=== PATIENT | female | born 1955 | race Caucasian/White ===

== ENCOUNTER 2018-01-08 16:24 | Emergency (ER) | payer OTHER, MEDICAID ==
[~2018-01-08] VITALS: Ht 160 cm; Wt 88.0 kg
[2018-01-08] MEDS ORDERED: HYDROCHLOROTH12.5 M1 PO ×2 (16:35→16:46)
[2018-01-08] MEDS ORDERED: AMITRIPTYLINE H25 M4 PO (16:35)
[2018-01-08] MEDS ORDERED: SINGULAIR4 M1 PO (16:43)
[2018-01-08] MEDS ORDERED: FLONASE 0.05%50 MCG NASAL (16:43)
[2018-01-08] MEDS ORDERED: VITAMIN C100 MG PO (16:44)
[2018-01-08] MEDS ORDERED: EFFEXOR XR75 MG PO (16:45)
[2018-01-08] MEDS ORDERED: MULTI FOR HER1 EAC2 PO (16:45)
[2018-01-08] MEDS ORDERED: TOPAMAX50 MG PO (16:46)
[2018-01-08] MEDS ORDERED: VISTARIL 25 MG25 M1 PO (16:46)
[2018-01-08] MEDS ORDERED: MYSOLINE50 MG PO (16:46)
[2018-01-08 16:50] LABS: ABSOLUTE BASOPHILS 0.1 thou/uL (0.0-0.2); ABSOLUTE EOSINOPHILS 0.3 thou/uL (0.0-0.7); ABSOLUTE LYMPHOCYTES 2.8 thou/uL (0.8-5.3); ABSOLUTE MONOCYTES 0.6 thou/uL (0.0-1.2); ABSOLUTE NEUTROPHILS 9.7 thou/uL (1.6-8.1); BASOPHILS 0.6 %; EOSINOPHILS 2.1 %; HEMATOCRIT 49.3 % (37.0-47.0); HEMOGLOBIN 16.9 gm/dL (12.0-15.0); LYMPHOCYTES 20.6 %; MCHC 34.2 g/dL (28.0-37.0); MCV 90.6 fL (80.0-100.0); MONOCYTES 4.7 %; MPV 9.1 fl. (7.2-11.1); NUCLEATED RBCS 0 /100WBC; PLATELET COUNT* 309 thou/uL (150-400); RBC 5.44 mil/uL (4.20-5.00); RDW-CV 14.9 % (10.5-14.5); WBC 13.5 thou/uL (4.0-11.0)
[2018-01-08] MEDS ORDERED: PRIMIDONE50 MG PO (16:54)
[2018-01-08] MEDS ORDERED: NEURONTIN 300300 M1 PO (16:55)
[2018-01-08 17:03] LABS: ANION GAP 7 mmol/L (7-16); BUN 15 mg/dL (7-18); CALCIUM 8.6 mg/dL (8.5-10.1); CHLORIDE 101 mmol/L (98-107); CO2 30 mmol/L (21-32); GLUCOSE 117 mg/dL (70-99); POTASSIUM 3.1 mmol/L (3.5-5.1); SODIUM 138 mmol/L (136-145)
[2018-01-08 17:14] LABS: ALBUMIN 3.4 g/dL (3.4-5.0); ALKALINE PHOSPHATASE 103 U/L (46-116); LIPASE 113 U/L (73-393); NT-PRO BRAIN NAT PEPTIDE 21 pg/mL (<300); SGOT 19 U/L (15-37); SGPT 27 U/L (30-65); TOTAL BILIRUBIN 0.1 mg/dL (<0.1-1.0); TOTAL PROTEIN 7.9 g/dL (6.4-8.2); TROPONIN-I LEVEL <0.06 ng/mL (<0.06)
[2018-01-08] MEDS ORDERED: HYDROCODON-ACE1 EAC7 PO (17:28)
[2018-01-08 17:36] VITALS: BP 140/70
--- NOTE | 2018-01-09 17:17 | EKG ---
[place] [address] ELECTROCARDIOGRAM REPORT Name: KATERIN MACKKIE Room: [facility]#: [id number] Admission: 01/08/18 Attend Phys: Discharge: 01/08/18 Date of : 55 Report #: [id number] THIS REPORT FOR: //name// [facility] ED Test Date: 2018-01-08 Test Time: 16:47:50 Pat Name: FELY MACK Department: Room: Gender: F Staff Therapist: NAHUN : 1955 Requested By: Salazar Pepe Order Number: [id number] MD: Ronnie Whyte Measurements Intervals [place] Rate: 76 P: 71 DC: 158 QRS: 43 QRSD: 101 T: 56 QT: 399 QTc: 449 Interpretive Statements Sinus rhythm RSR' in V1 or V2, right VCD or RVH No previous ECG available for comparison Electronically Signed On 01-09-2018 17:17:29 CDT by Ronnie Whyte [email or web address] <ELECTRONICALLY SIGNED> By: Ronnie Whyte MD, [facility] 01/09/18 1717 [id number] 46 Ronnie Whyte MD, FACC /EPI
== END 2018-01-08 17:37 | disposition home or self-care (01) ==
LOC: M.ERS 16:24
PROVIDERS: Emergency Medicine
DX: G62.9 Polyneuropathy, unspecified (principal); M32.9 Systemic lupus erythematosus, unspecified; M25.511 Pain in right shoulder; I10 Essential (primary) hypertension; J44.9 Chronic obstructive pulmonary disease, unspecified; F41.9 Anxiety disorder, unspecified; F32.9 Major depressive disorder, single episode, unspecified; F17.210 Nicotine dependence, cigarettes, uncomplicated

== ENCOUNTER 2018-02-25 11:53 | Inpatient (IN) | payer OTHER, MEDICAID ==
[~2018-02-25] VITALS: Ht 160 cm; Wt 90.7 kg
[~2018-02-25 11:53] MED LIST: AMITRIPTYLINE H25 M4 PO; EFFEXOR XR75 MG PO; FLONASE 0.05%50 MCG NASAL; HYDROCHLOROTH12.5 M1 PO; HYDROCODON-ACE1 EAC7 PO; MULTI FOR HER1 EAC2 PO; MYSOLINE50 MG PO; NEURONTIN 300300 M1 PO; PRIMIDONE50 MG PO; SINGULAIR4 M1 PO; TOPAMAX50 MG PO; VISTARIL 25 MG25 M1 PO; VITAMIN C100 MG PO
[2018-02-25 12:20] LABS: BE 0.2 mmol/L (-2 to +3); HCO3 24.5 mmol/L (22.0-26.0); PO2 62.5 mmHg (75.0-100.0); pH 7.416 (7.340-7.450)
[2018-02-25 12:33] LABS: ABSOLUTE BASOPHILS 0.1 thou/uL (0.0-0.2); ABSOLUTE EOSINOPHILS 0.2 thou/uL (0.0-0.7); ABSOLUTE LYMPHOCYTES 2.1 thou/uL (0.8-5.3); ABSOLUTE MONOCYTES 0.7 thou/uL (0.0-1.2); ABSOLUTE NEUTROPHILS 13.1 thou/uL (1.6-8.1); BASOPHILS 0.4 %; EOSINOPHILS 1.2 %; HEMATOCRIT 45.6 % (37.0-47.0); HEMOGLOBIN 15.2 gm/dL (12.0-15.0); LYMPHOCYTES 12.9 %; MCH 30.5 pg (26.0-34.0); MCHC 33.3 g/dL (28.0-37.0); MCV 91.6 fL (80.0-100.0); MONOCYTES 4.5 %; MPV 8.7 fl. (7.2-11.1); NUCLEATED RBCS 0 /100WBC; PLATELET COUNT* 310 thou/uL (150-400); RBC 4.98 mil/uL (4.20-5.00); RDW-CV 14.8 % (10.5-14.5); WBC 16.2 thou/uL (4.0-11.0)
[2018-02-25 12:37] LABS: APTT 30.3 Seconds (25.0-31.3); PROTIME 10.2 Seconds (9.20-11.50)
[2018-02-25 12:39] LABS: ANION GAP 8 mmol/L (7-16); BUN 10 mg/dL (7-18); CALCIUM 8.1 mg/dL (8.5-10.1); CHLORIDE 103 mmol/L (98-107); CO2 26 mmol/L (21-32); GLUCOSE 110 mg/dL (70-99); SODIUM 137 mmol/L (136-145)
[2018-02-25 12:49] LABS: ALBUMIN 3.2 g/dL (3.4-5.0); ALKALINE PHOSPHATASE 88 U/L (46-116); LIPASE 83 U/L (73-393); MAGNESIUM 1.6 mg/dL (1.8-2.4); NT-PRO BRAIN NAT PEPTIDE 101 pg/mL (<300); SGOT 14 U/L (15-37); SGPT 18 U/L (30-65); TOTAL BILIRUBIN 0.3 mg/dL (<0.1-1.0); TROPONIN-I LEVEL <0.06 ng/mL (<0.06)
[2018-02-25 13:05] VITALS: BP 114/67
[2018-02-25] MEDS ORDERED: ECHINACEA EXTR125 MG PO (13:45)
[2018-02-25] MEDS ORDERED: CALCIUM 600 +1 EAC1 PO (13:46)
[2018-02-25] MEDS ORDERED: ALBUTEROL2.5 MG/31 INH (13:51)
[2018-02-25] MEDS ORDERED: SYMBICORT160 MCG/4. INH (13:52)
[2018-02-25] MEDS ORDERED: PROAIR HFA8.5 GM INH (13:52)
[2018-02-25 14:47] VITALS: BP 144/52
[2018-02-25 16:00] VITALS: BP 122/45
--- NOTE | 2018-02-25 16:23 | EKG ---
[place] [address] ELECTROCARDIOGRAM REPORT Name: FELY MACK Room: [address] ADM IN .R.#: [id number] Admission: 02/25/18 Attend Phys: Eric Dunne MD Discharge: Date of : 55 Report #: [id number] THIS REPORT FOR: //name// 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: MARTINEZ : 1955 Requested By: Samuel Adam Order Number: [id number] MD: Yohannes Hicks Measurements Intervals [place] Rate: 88 P: 76 CO: 157 QRS: 54 QRSD: 101 T: 53 QT: 391 QTc: 473 Interpretive Statements Sinus rhythm RSR' in V1 or V2, right VCD or RVH Compared to ECG 01/08/2018 16:47:50 No significant changes Electronically Signed On 02-25-2018 16:23:32 [employer] by Yohannes Hicks [email or web address] <ELECTRONICALLY SIGNED> By: Yohannes Hicks MD, [facility] 02/25/18 1623 [id number] [id number] Yohannes Hicks MD, [facility] /EPI
[2018-02-25 19:59] VITALS: BP 119/61
[2018-02-25 23:55] VITALS: BP 112/63
[2018-02-26 04:01] VITALS: BP 134/62
[2018-02-26 08:20] VITALS: BP 110/55
[2018-02-26 12:00] VITALS: BP 139/74
[2018-02-26 16:00] VITALS: BP 112/53
[2018-02-26 20:00] VITALS: BP 122/58
[2018-02-27] VITALS (7 sets, daily range): BP systolic 115–144; BP diastolic 57–72
[2018-02-27 09:50] LABS: CALCIUM 8.7 mg/dL (8.5-10.1); MAGNESIUM 2.1 mg/dL (1.8-2.4); POTASSIUM 3.3 mmol/L (3.5-5.1)
[2018-02-28 04:00] VITALS: BP 123/64
[2018-02-28 04:01] LABS: ABSOLUTE BASOPHILS 0.1 thou/uL (0.0-0.2); ABSOLUTE EOSINOPHILS 0.1 thou/uL (0.0-0.7); ABSOLUTE LYMPHOCYTES 3.5 thou/uL (0.8-5.3); ABSOLUTE NEUTROPHILS 11.2 thou/uL (1.6-8.1); BASOPHILS 0.5 %; EOSINOPHILS 0.8 %; HEMATOCRIT 41.6 % (37.0-47.0); HEMOGLOBIN 13.6 gm/dL (12.0-15.0); LYMPHOCYTES 21.8 %; MCH 30.7 pg (26.0-34.0); MCHC 32.7 g/dL (28.0-37.0); MONOCYTES 6.4 %; MPV 9.1 fl. (7.2-11.1); NUCLEATED RBCS 0 /100WBC; PLATELET COUNT* 321 thou/uL (150-400); POLYS 70.5 %; RBC 4.43 mil/uL (4.20-5.00); RDW-CV 15.4 % (10.5-14.5); WBC 15.9 thou/uL (4.0-11.0)
[2018-02-28 04:05] LABS: CALCIUM 8.8 mg/dL (8.5-10.1)
[2018-02-28 04:36] LABS: POTASSIUM 4.8 mmol/L (3.5-5.1)
[2018-02-28 08:10] VITALS: BP 119/59
[2018-02-28 12:00] VITALS: BP 120/63
[2018-02-28] MEDS ORDERED: IPRAT-ALBUT 0.5-3 ML INH (12:58)
[2018-02-28] MEDS ORDERED: MUCINEX600 MG PO (12:59)
[2018-02-28] MEDS ORDERED: PREDNISONE 20 M20 MG PO (13:00)
[2018-02-28] MEDS ORDERED: LEVAQUIN 750 M750 MG PO (13:03)
[2018-02-28 13:39] VITALS: BP 119/59
[2018-02-28 14:27] VITALS: BP 119/59
[2018-02-28 16:13] VITALS: BP 119/59
== END 2018-02-28 16:18 | disposition home health service (06) | DRG 871 ==
LOC: M.ERS 11:53 → M.TBA-ER 12:32 → M.3W 12:32
PROVIDERS: Family Medicine; ADMIT Family Medicine
DX: A41.9 Sepsis, unspecified organism (principal); J96.20 Acute and chronic respiratory failure, unspecified whether with hypoxia or hypercapnia; J44.1 Chronic obstructive pulmonary disease with (acute) exacerbation; I10 Essential (primary) hypertension; F32.9 Major depressive disorder, single episode, unspecified; J45.909 Unspecified asthma, uncomplicated; F41.9 Anxiety disorder, unspecified; G62.9 Polyneuropathy, unspecified; F17.210 Nicotine dependence, cigarettes, uncomplicated; F43.10 Post-traumatic stress disorder, unspecified; K59.00 Constipation, unspecified; Z88.0 Allergy status to penicillin; Z79.899 Other long term (current) drug therapy